=== PATIENT | male | born 1980 | race Caucasian/White ===

== ENCOUNTER 2017-05-29 16:46 | Emergency (ER) | payer MEDICAID ==
[~2017-05-29] VITALS: Ht 177.8 cm; Wt 89.0 kg
[~2017-05-29 16:46] MED LIST: CLIN-26 PO; TRAM50TA2 PO
[2017-05-29 16:54] VITALS: BP 150/78
[2017-05-29] MEDS ORDERED: ketorolac trometh inj. 60 MG/2 ML VIAL IM ONE (17:25)
[2017-05-29] MEDS ORDERED: IBUP-1984 PO (17:26)
[2017-05-29] MEDS ORDERED: CHLO118L TOP (17:26)
[2017-05-29] MEDS ORDERED: PANT-47 PO (17:26)
== END 2017-05-29 17:49 | disposition home or self-care (01) ==
LOC: ER 16:48
DX: S46.001A Unspecified injury of muscle(s) and tendon(s) of the rotator cuff of right shoulder, initial encounter (principal); M75.41 Impingement syndrome of right shoulder; L73.9 Follicular disorder, unspecified; G89.29 Other chronic pain; F31.9 Bipolar disorder, unspecified; F17.200 Nicotine dependence, unspecified, uncomplicated; Z59.0 Homelessness; X58.XXXA Exposure to other specified factors, initial encounter; Y93.89 Activity, other specified; Y99.8 Other external cause status; Y92.89 Other specified places as the place of occurrence of the external cause
CPT/HCPCS: 96372; 99283; J1885

== ENCOUNTER 2017-06-07 13:08 | Outpatient (CLI) | payer MEDICAID ==
[~2017-06-07 13:08] MED LIST changes: +CHLO118L TOP; +IBUP-1984 PO; +PANT-47 PO
[2017-06-07 13:09] VITALS: BP 131/88
[2017-06-07 13:21] VITALS: BP 131/88
[2017-06-07 13:53] VITALS: BP 131/88
== END 2017-06-07 13:40 | disposition home or self-care (01) ==
LOC: ORTHO 13:08
PROVIDERS: ATTEND Nurse Practitioner Family
DX: S46.001A Unspecified injury of muscle(s) and tendon(s) of the rotator cuff of right shoulder, initial encounter (principal); X50.0XXA Overexertion from strenuous movement or load, initial encounter; Y93.H9 Activity, other involving exterior property and land maintenance, building and construction; Y92.096 Garden or yard of other non-institutional residence as the place of occurrence of the external cause
CPT/HCPCS: 99213

== ENCOUNTER 2017-06-30 19:20 | Emergency (ER) | payer MEDICAID ==
[~2017-06-30] VITALS: Ht 177.8 cm; Wt 84.0 kg
[~2017-06-30 19:20] MED LIST changes: -IBUP-1984 PO
[2017-06-30] MEDS ORDERED: MELO15TA13 PO (20:40)
[2017-06-30] MEDS ORDERED: PENI500T2 PO (20:40)
[2017-06-30 20:47] VITALS: BP 145/89
== END 2017-06-30 20:49 | disposition home or self-care (01) ==
LOC: ER 19:21
DX: K04.7 Periapical abscess without sinus (principal); F17.200 Nicotine dependence, unspecified, uncomplicated; G89.29 Other chronic pain; Z59.0 Homelessness; Z60.2 Problems related to living alone; Z79.899 Other long term (current) drug therapy
CPT/HCPCS: 99285

== ENCOUNTER 2017-08-09 08:00 | Outpatient (CLI) | payer MEDICAID ==
[~2017-08-09 08:00] MED LIST changes: +MELO15TA13 PO
[2017-08-09] MEDS ORDERED: gadopentetate dimeglumine 5 mmol/10ml vial IV ONE (09:43)
[2017-08-09] MEDS ORDERED: iohexol 300 MG/1 ML 10ml vial ONE (09:44)
[2017-08-19] MEDS ORDERED: PENI250T2 PO (22:06)
[2017-08-19] MEDS ORDERED: IBUP-1984 PO (22:06)
== END 2017-08-09 08:15 | disposition home or self-care (01) ==
LOC: RAD 08:00 → EDSTATUS 10:00
PROVIDERS: ATTEND Nurse Practitioner Family
PROC: BP38YZZ Magnetic Resonance Imaging (MRI) of Right Shoulder using Other Contrast (ICD-10-PCS; principal; 2017-08-09)
DX: S43.429A Sprain of unspecified rotator cuff capsule, initial encounter (principal)
CPT/HCPCS: 73222; A9579; Q9967